=== PATIENT | female | born 1965 | race Caucasian/White ===

== ENCOUNTER 2023-10-06 01:28 | Emergency (ER) | payer OTHER ==
[2023-10-06 01:45] VITALS: BP 131/79; O2SAT 100
--- NOTE | 2023-10-06 02:08 | ED Physician Documentation ---
PD HPI OPHTHO - Stated complaint Stated Complaint: ITEM IN L EYE - Chief complaint Chief Complaint: Heent - History obtained from History obtained from: Patient - Additional information Additional information: 57yF who wears contact lens p/w L eye foreign body sensation starting today. patient thinks she may have contact lens stuck in eye or scratched it. PD PAST MEDICAL HISTORY - Past Medical History Past Medical History: No - Past Surgical History Past Surgical History: Yes General: Cholecystectomy, Gastric surgery /[employer]: Hysterectomy, Breast implants, Other - Present Medications Home Medications: Ambulatory Orders Medication Instructions Recorded Confirmed Estradiol [Estrace] 1 tab PO DAILY 10/06/23 10/06/23 Mineral Oil/Petrolatum,White 3.5 gm OP QPM #3.5 gm 10/06/23 [Lubricant Pm Eye Ointment] Ofloxacin 0.3% Ophth Drops 3 drops OPTH Q4H #5 ml 10/06/23 [Ocuflox 0.3% Ophth Drops] Topiramate [Topamax] 1 tab PO PRN PRN 10/06/23 10/06/23 buPROPion [Wellbutrin Xl] 1 tab PO DAILY 10/06/23 10/06/23 - Allergies Allergies/Adverse Reactions: Allergies Allergy/AdvReac Type Severity Reaction Status Date / Time Penicillins Allergy Hives Verified 10/06/23 02:10 - Social History Does the pt smoke?: No Smoking Status: Never smoker Does the pt drink ETOH?: Yes Does the pt have substance abuse?: No PD ED PE NORMAL - Vitals Vital signs reviewed: Yes - General General: Alert and oriented X 3, No acute distress, Well developed/nourished - HEENT HEENT: Atraumatic, PERRL, EOMI, Other (no foreign body on eversion of upper and lower lids. diamond lamp reveals large corneal abrasion to L eye. fluorescein further elucidates 3mm diameter central corneal abrasion) Results - Vitals Vitals: Vital Signs - 24 hr 10/06/23 01:40 Temperature 36.5 C Heart Rate 66 Respiratory 16 Rate Blood Pressure 131/79 H O2 Saturation 100 Oxygen O2 Source Room air PD Medical Decision Making - ED course ED course: 57yF p/w L corneal abrasion. Lubricant eye drops and ofloxacin sent to pharmacy. Strict return precautions given. plan to f/u outpatient optho or optometry. Departure - Departure Disposition: 01 Home, Self Care Clinical Impression: Corneal abrasion Condition: Stable Instructions: Corneal Injury Prescriptions: Mineral Oil/Petrolatum,White [Lubricant Pm Eye Ointment] 3.5 gm OP QPM #3.5 gm Ofloxacin 0.3% Ophth Drops [Ocuflox 0.3% Ophth Drops] 3 drops OPTH Q4H #5 ml Comments: You were seen in the emergency department for corneal abrasion (scratch on the eye). DO NOT WEAR CONTACT LENS in that eye for at least 2 weeks. Eye drops sent electronically to [facility] in [place]. Please follow up with ophthalmology or o ptometry. Return to the ED for new or worsening symptoms or other concerns. Forms: PCP List
[2023-10-06] MEDS: CARBOXYMETHYLCELLULOSE OPHTH DROPS LEFTEYE STA (02:13)
== END 2023-10-06 02:35 | disposition home or self-care (01) ==
LOC: ED 01:28
DX: S05.02XA Injury of conjunctiva and corneal abrasion without foreign body, left eye, initial encounter (principal); X58.XXXA Exposure to other specified factors, initial encounter; Y93.E8 Activity, other personal hygiene
CPT/HCPCS: 99284; A9270